=== PATIENT | female | born 1985 | race Caucasian/White ===

== ENCOUNTER 2020-07-13 02:04 | Inpatient (IN) ==
[2020-07-13 04:43] LABS: Hemoglobin 11.9 g/dL (12.0-16.0); Mean Corpuscular Hemoglobin 30.6 pg (25-34); Platelet Count 259 K/uL (130-400); RDW Coefficient of Variation 15.5 % (11.5-14.5); RDW Standard Deviation 49.6 fL (36.4-46.3); Red Blood Count 3.89 M/uL (4.2-5.4); White Blood Count 13.43 K/uL (4.8-10.8)
[2020-07-13] MEDS ORDERED: LACTATED RINGER'S 1,000 ML IV PRN ×2 (04:47→04:48)
[2020-07-13] MEDS ORDERED: OXYTOCIN 30 UNITS/500 ML BAG IV PRN ×3 (06:45→17:05)
--- NOTE | 2020-07-13 06:53 | History & Physical Report ---
Date of Service July 13, 2020 Assessment & Plan (1) : Admit to L&D, EFM/toco, IV, labs. Glucose checks Q2h in labor. OK for epidural. Will start pitocin at this time, as it has been 6h since ROM and ctx, while they have increased and cervix has changed since arrival (1 to 3 cm), not yet in a labor pattern. History of Present Illness Chief Complaint: rupture of membranes Primary Care Provider: Yoly Alvarez DO 35yo @ 39 12/08 presented to L&D after ROM clear fluid at home about midnight. Contractions are picking up. No vaginal bleeding. + movement. complicated by: RH NEGATIVE- Rhogam given 04/28/20 Panorama positive for XXY Klinefelter syndrome - MFM consult telemedicine, declined U/S & amnio GDM on Insulin *Wkly NSTs @32wks and Twice wkly @36wks *Serial growth US @28wks *Deliver by [facility] Allergies Allergy/AdvReac Type Severity Reaction Status Date / Time No Known Allergies Allergy Verified 07/07/20 14:05 Home Medications Home Medications Medication Instructions Recorded Confirmed Type prenat.vits,beto,[id number] 1 tab PO DAILY 01/15/20 07/13/20 History acetone (urine) test #50 ea 02/23/20 07/07/20 Rx blood sugar diagnostic #120 ea 02/23/20 07/07/20 Rx blood-glucose meter #1 ea 02/23/20 07/07/20 Rx lancets #102 ea 02/23/20 07/07/20 Rx insulin syringe-needle U-100 1 mL #50 ea 05/19/20 07/07/20 Rx 31 gauge x /16" ferrous sulfate 27 mg iron tablet 27 mg PO CQWK 05/23/20 07/13/20 History insulin NPH isoph U-100 human 100 120 units SQ QPM #40 ml 06/03/20 07/13/20 Rx unit/mL subcutaneous suspension fluticasone propionate 2 dose INHALATION BID 07/13/20 07/13/20 History metformin 2,000 mg PO QPM MDD 2000 mg 07/13/20 07/13/20 History Patient History Medical History Gestational diabetes mellitus (GDM) History of chicken pox Surgical History S/P LASIK surgery Family History Father Diabetes Mother Hypercholesteremia Social History Smoking Status: Never smoker Hx Alcohol Use: No Hx Substance Use: No Preferred Language: Turkish Load Planner Required: No Beliefs That Will Affect Care: None marital status: marital status details: Juan Woodard (34) [phone] Current Living Situation: Spouse Current Living Situation Comment: lives with spouse, dog current occupational status: employed 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 No s/s chorio or abruption. Skin: no rashes, warm and dry Psychiatric: A+Ox3, euthymic affect Results & Data ([facility]) Vital Signs (Past 12 Hours) Vital Signs Temp Resp 07/13/20 06:15 36.9 C 18 Monitoring External Monitor FHT Cat 1, toco Q 5-6 min Coding Level of Care Code None Diagnoses Z34.90
[2020-07-13] MEDS: LACTATED RINGER'S 1,000 ML IV PRN ×2 (07:46→08:38)
[2020-07-13] MEDS ORDERED: fentaNYL 2MCG/ML ROPIV 1.25MG/ML 100 ML BAG EPI ONE ×2 (07:54→15:31)
[2020-07-13] MEDS ORDERED: ePHEDrine sulfate 50 MG/ML AMP ONE (07:54)
[2020-07-13] MEDS ORDERED: fentaNYL citrate 100 MCG/2 ML VIAL ONE (07:54)
[2020-07-13] MEDS ORDERED: BUPIVACAINE 0.25% 30 ML VIAL ONE (07:54)
[2020-07-13] MEDS ORDERED: fentaNYL 2MCG/ML ROPIV 1.25MG/ML 100 ML BAG EPI PRN (08:42)
[2020-07-13] MEDS ORDERED: NALOXONE HCL 0.4 MG/1 ML VIAL/CARP IV PRN (08:42)
[2020-07-13] MEDS ORDERED: ONDANSETRON INJ 2 MG/ML 2 ML VIAL IV PRN (08:42)
[2020-07-13] MEDS ORDERED: DiphenhydrAMINE HCL 50 MG/ML VIAL IV PRN (08:42)
[2020-07-13] MEDS ORDERED: NALOXONE HCL 1 MG in SODIUM CHLORIDE 0.9% 1000ML 1,000 ML IV PRN (08:42)
[2020-07-13] MEDS ORDERED: ePHEDrine sulfate 50 MG/ML AMP IV PRN (08:42)
--- NOTE | 2020-07-13 08:48 | Anesthesiology Consultation ---
Date of Service July 13, 2020 Covid 19 negative on 07/07/20. Assessment & Plan Chart Review Chart Review: Patient NOT seen in Pre Admission Testing and Acceptable Risk for Labor Epidural Consults Requested none ASA ASA2 Proposed Anesthesia Anesthesia Type: Labor Epidural and CSE Risk / Benefits Reviewed With: PT / POA / Parent / Guardian, Accepts Plan and Informed Consent Obtained History Height/Weight Height: 5 ft 5 in Weight: 111.13 kg Allergies Allergy/AdvReac Type Severity Reaction Status Date / Time No Known Allergies Allergy Verified 07/07/20 14:05 Medications Home Medications Medication Instructions Recorded Confirmed Last Taken prenat.vits,beto,[id number] 1 tab PO DAILY 01/15/20 07/13/20 07/12/20 08:00 acetone (urine) test #50 ea 02/23/20 07/07/20 Unknown blood sugar diagnostic #120 ea 02/23/20 07/07/20 Unknown blood-glucose meter #1 ea 02/23/20 07/07/20 Unknown lancets #102 ea 02/23/20 07/07/20 Unknown insulin syringe-needle U-100 1 mL #50 ea 05/19/20 07/07/20 Unknown 31 gauge x 5/16" ferrous sulfate 27 mg iron tablet 27 mg PO CQWK 05/23/20 07/13/20 07/12/20 20:00 insulin NPH isoph U-100 human 100 120 units SQ QPM #40 ml 06/03/20 07/13/20 07/12/20 22:00 unit/mL subcutaneous suspension fluticasone propionate 2 dose INHALATION BID 07/13/20 07/13/20 07/12/20 22:00 metformin 2,000 mg PO QPM MDD 2000 mg 07/13/20 07/13/20 07/12/20 20:00 Active Medications Generic Name Dose Route Start Last Admin Trade Name Freq PRN Reason Stop Dose Admin Lactated Ringer's 1,000 mls @ 125 mls/hr 07/13/20 06:45 07/13/20 08:38 Lr IV 07/15/20 06:44 125 mls/hr .Q8H PRN Administration L&D Protocol Protocol Oxytocin 30 units in 500 mls @ 1 mls/hr 07/13/20 06:53 07/13/20 08:30 Pitocin IV 07/15/20 06:52 0.18 units/hr .Q24H PRN 3 mls/hr Labor Induction/Augmentation Titration Protocol 0.06 UNITS/HR NPO Date Last Intake of Fluids: 07/13/20 Time Last Intake of Fluids: 07:30 Date Last Intake of Solids: 07/13/20 Time Last Intake of Solids: 01:00 Past Medical History Medical History Gestational diabetes mellitus (GDM) History of chicken pox Exercise / Class Metabolic Activity II 4-5 Yardwork/Stairs/Walk up hill Past Family History Family History Father Diabetes Mother Hypercholesteremia Past Surgical History Surgical History S/P LASIK surgery Past Anesthesia History No Hx of Anesthesia Complications and No Family Hx of Anesthesia Complications History of PONV No Hx of PONV and No Hx of Motion Sickness Social History Smoking Status: Never smoker Hx Alcohol Use: No Hx Substance Use: No Review of Systems no chest pain or sob Physical Exam Vital Signs Last Vital Signs Temp 36.7 C 07/13/20 07:15 Pulse 101 H 07/13/20 08:43 Resp 20 07/13/20 07:15 BP 142/80 H 07/13/20 08:40 Pulse Ox 100 07/13/20 08:43 ENMT Mouth: no TMJ abnormality Thyromental Distance: > or= 3.5 Finger Breadths Mallampati Class: II Neck normal visual inspection Respiratory normal respiratory effort Auscultation: lungs clear to auscultation bilaterally Cardiovascular Rate/Rhythm: regular rate and regular rhythm Musculoskeletal Spine: normal cervical ROM Neurologic moves all extremities Psychiatric Orientation: alert and oriented x 3 Testing Laboratory Results 07/13/20 02:55 07/13/20 07/13/20 07:50 07:13 POC Glucose 100 H 109 H
--- NOTE | 2020-07-13 11:28 | Labor Progress Brief Note ---
Date of Service July 13, 2020 Subjective comfortable with epidural Assessment & Plan (1) Insulin controlled gestational diabetes mellitus (GDM) during , antepartum: Continue current management. fetus category one . anticipate . Admission and Anticipated Discharge Date Admission Date: July 13, 2020 Physical Exam Constitutional: WD/WN, vitals as above Psychiatric: A+Ox3, euthymic affect Genitourinary: cx--4/100/-2 toco--q 2-4min, runs of coupling /tripling, pit at 9 efm--130s with mod varibility, accels to 150s, no decels Results & Data ([facility]) Vital Signs (Past 12 Hours) Vital Signs Temp Pulse Resp BP Pulse Ox 07/13/20 11:25 77 140/72 07/13/20 11:23 74 96 07/13/20 11:18 76 98 07/13/20 11:13 79 99 07/13/20 11:10 82 128/69 07/13/20 11:08 81 98 07/13/20 11:03 96 H 97 07/13/20 11:01 20 07/13/20 10:58 83 97 07/13/20 10:55 93 H 106/58 L 07/13/20 10:53 82 96 07/13/20 10:48 97 H 99 07/13/20 10:46 20 07/13/20 10:43 85 96 07/13/20 10:41 97 H 108/59 L 07/13/20 10:38 86 97 07/13/20 10:33 84 97 07/13/20 10:31 20 07/13/20 10:28 81 97 07/13/20 10:26 80 112/56 L 07/13/20 10:23 83 95 07/13/20 10:18 78 97 07/13/20 10:16 20 07/13/20 10:13 75 96 07/13/20 10:11 77 102/59 L 07/13/20 10:08 91 H 99 07/13/20 10:03 85 97 07/13/20 10:01 20 07/13/20 09:58 86 98 07/13/20 09:56 83 136/61 07/13/20 09:53 84 98 07/13/20 09:48 75 97 07/13/20 09:46 20 07/13/20 09:43 73 97 07/13/20 09:39 68 151/80 H 07/13/20 09:38 75 96 07/13/20 09:33 72 96 07/13/20 09:31 20 07/13/20 09:28 84 97 07/13/20 09:24 74 143/78 H 07/13/20 09:23 77 98 07/13/20 09:19 76 140/68 07/13/20 09:18 87 136/82 98 07/13/20 09:15 37 C 20 07/13/20 09:13 82 131/70 98 07/13/20 09:10 75 159/71 H 07/13/20 09:08 85 99 07/13/20 09:07 83 159/75 H 07/13/20 09:04 79 115/81 07/13/20 09:03 80 97 07/13/20 08:58 91 H 99 07/13/20 08:53 89 98 07/13/20 08:48 87 100 07/13/20 08:43 101 H 100 07/13/20 08:40 80 142/80 H 07/13/20 08:38 79 100 07/13/20 07:48 78 135/65 07/13/20 07:15 36.7 C 20 07/13/20 07:07 87 137/78 07/13/20 06:15 36.9 C 18 Coding Level of Care Code None Diagnoses Insulin controlled gestational diabetes mellitus (GDM) during , antepartum O24.414
--- NOTE | 2020-07-13 14:15 | Labor Progress Brief Note ---
Date of Service July 13, 2020 Subjective comfortable, no pressure Assessment & Plan (1) Insulin controlled gestational diabetes mellitus (GDM) during , antepartum: Admission and Anticipated Discharge Date Admission Date: July 13, 2020 sugars controlled. Plan to labor down and then push when feels pressure or one hour. Physical Exam Constitutional: WD/WN, vitals as above Psychiatric: A+Ox3, euthymic affect Genitourinary: cx--c/c/0 toco--q2-3, pit at 13 efm--140s with mod variability, small accels , no decels Results & Data ([facility]) Vital Signs (Past 12 Hours) Vital Signs Temp Pulse Resp BP Pulse Ox 07/13/20 14:08 85 100 07/13/20 14:03 80 100 07/13/20 13:58 89 100 07/13/20 13:56 83 131/64 07/13/20 13:53 85 99 07/13/20 13:48 80 99 07/13/20 13:46 18 07/13/20 13:43 77 99 07/13/20 13:40 73 139/70 07/13/20 13:38 88 98 07/13/20 13:33 81 100 07/13/20 13:30 18 07/13/20 13:28 75 98 07/13/20 13:26 76 134/67 07/13/20 13:23 77 99 07/13/20 13:18 87 100 07/13/20 13:15 36.6 C 20 07/13/20 13:13 91 H 98 07/13/20 13:10 90 128/63 07/13/20 13:08 90 99 07/13/20 13:03 82 97 07/13/20 13:01 20 07/13/20 12:58 81 97 07/13/20 12:56 80 125/65 07/13/20 12:53 83 97 07/13/20 12:48 77 98 07/13/20 12:46 20 07/13/20 12:43 83 97 07/13/20 12:40 80 123/71 07/13/20 12:38 82 99 07/13/20 12:33 84 99 07/13/20 12:31 20 07/13/20 12:28 90 99 07/13/20 12:25 78 126/64 07/13/20 12:23 78 96 07/13/20 12:18 74 97 07/13/20 12:16 20 07/13/20 12:13 85 99 07/13/20 12:10 76 125/73 07/13/20 12:08 82 98 07/13/20 12:03 89 98 07/13/20 12:01 20 07/13/20 11:58 91 H 99 07/13/20 11:54 83 130/69 07/13/20 11:53 79 100 07/13/20 11:48 74 97 07/13/20 11:46 20 07/13/20 11:43 76 98 07/13/20 11:39 70 138/72 07/13/20 11:38 77 99 07/13/20 11:33 82 98 07/13/20 11:31 36.6 C 20 07/13/20 11:28 91 H 99 07/13/20 11:25 77 140/72 07/13/20 11:23 74 96 07/13/20 11:18 76 98 07/13/20 11:13 79 99 07/13/20 11:10 82 128/69 07/13/20 11:08 81 98 07/13/20 11:03 96 H 97 07/13/20 11:01 20 07/13/20 10:58 83 97 07/13/20 10:55 93 H 106/58 L 07/13/20 10:53 82 96 07/13/20 10:48 97 H 99 07/13/20 10:46 20 07/13/20 10:43 85 96 07/13/20 10:41 97 H 108/59 L 07/13/20 10:38 86 97 07/13/20 10:33 84 97 07/13/20 10:31 20 07/13/20 10:28 81 97 07/13/20 10:26 80 112/56 L 07/13/20 10:23 83 95 07/13/20 10:18 78 97 07/13/20 10:16 20 07/13/20 10:13 75 96 07/13/20 10:11 77 102/59 L 07/13/20 10:08 91 H 99 07/13/20 10:03 85 97 07/13/20 10:01 20 07/13/20 09:58 86 98 07/13/20 09:56 83 136/61 07/13/20 09:53 84 98 07/13/20 09:48 75 97 07/13/20 09:46 20 07/13/20 09:43 73 97 07/13/20 09:39 68 151/80 H 07/13/20 09:38 75 96 07/13/20 09:33 72 96 07/13/20 09:31 20 07/13/20 09:28 84 97 07/13/20 09:24 74 143/78 H 07/13/20 09:23 77 98 07/13/20 09:19 76 140/68 07/13/20 09:18 87 136/82 98 07/13/20 09:15 37 C 20 07/13/20 09:13 82 131/70 98 07/13/20 09:10 75 159/71 H 07/13/20 09:08 85 99 07/13/20 09:07 83 159/75 H 07/13/20 09:04 79 115/81 07/13/20 09:03 80 97 07/13/20 08:58 91 H 99 07/13/20 08:53 89 98 07/13/20 08:48 87 100 07/13/20 08:43 101 H 100 07/13/20 08:40 80 142/80 H 07/13/20 08:38 79 100 07/13/20 07:48 78 135/65 07/13/20 07:15 36.7 C 20 07/13/20 07:07 87 137/78 07/13/20 06:15 36.9 C 18 Coding Level of Care Code None Diagnoses Insulin controlled gestational diabetes mellitus (GDM) during , antepartum O24.414
--- NOTE | 2020-07-13 16:29 | Delivery Summary ---
Vaginal Delivery Summary Date of Service July 13, 2020 Vaginal Delivery Summary Pre-operative Diagnosis: at term prom Post-operative Diagnosis: same Procedure: epidural pitocin augmentation right labial laceration wtih repair EBL: 400cc Anesthesia: epidural Procedure: The patient pushed for less than an hour to deliver a viable male infant in KENNEDY position. A loose nuchal cord x 2 reduced easily and the rest of the infant was then delivered without difficulty. The baby was vigorous. The nose and mouth were bulb suctioned and the infant was placed in the maternal abdomen for drying and attention. Cord was clamped and cut at 30 secs of life. Cord blood and segment obtained. Placenta delivered via manual extraction and was intact. Uterus swept and no pocs noted Cervix/sulci/rectum/perineum were intact. A small right labial laceration was repaired in the normal standard fashion. Hemostasis obtained with dilute pitocin and fundal massage. Apgars were 7/9. Mother and baby doing well at the end of the delivery. [facility] Vaginal Delivery Charge Vaginal Delivery Codes: 97759 global code for the antepartum, delivery, and post-
[2020-07-13] MEDS ORDERED: ACETAMINOPHEN 325 MG TAB PO PRN (16:33)
[2020-07-13] MEDS ORDERED: OXYCODONE/ACETAMINOPHEN 5mg/325mg TAB PO PRN (16:33)
--- NOTE | 2020-07-13 16:46 | Anesthesia Procedure Note ---
Date of Service July 13, 2020 Anesthesia Post Epidural Note Vital Signs Vital Signs: Temp Pulse Resp BP Pulse Ox 36.6 C 101 H 20 133/58 L 97 07/13/20 13:15 07/13/20 16:37 07/13/20 15:31 07/13/20 16:37 07/13/20 16:08 Notes Mental Status: alert / awake / arousable and participated in evaluation Nausea / Vomiting: adequately controlled Pain: adequately controlled Airway Patency, RR, SpO2: stable & adequate BP & HR: stable & adequate Hydration State: stable & adequate Neuraxial Anesthesia: was administered and sensory block is resolving Anesthetic Complications: no major complications apparent and Pt Satisfied with anesthetic care Epidural: Removed without complications and With tip intact
[2020-07-13] MEDS ORDERED: HYDROCORTISONE ACETATE 25 MG SUPP PR PRN (17:05)
[2020-07-13] MEDS ORDERED: DIPHTHERIA/TETANUS/PERTUSSIS 0.5 ML SYR/VIAL IM ONE (17:05)
[2020-07-13] MEDS ORDERED: SUPERCREAM 0.870% 15 GM JAR EXT PRN (17:05)
[2020-07-13] MEDS ORDERED: BENZOCAINE 20% AER SPR 82.5 GM CAN EXT PRN (17:05)
[2020-07-13] MEDS: DOCUSATE SODIUM 100 MG CAP PO SCH (20:41)
[2020-07-13] MEDS: IBUPROFEN 600 MG TAB PO PRN (22:57)
[2020-07-14] MEDS: IBUPROFEN 600 MG TAB PO PRN ×3 (05:01→20:50)
[2020-07-14 05:42] LABS: Hematocrit (blood only) 33.7 % (37-47); Hemoglobin 11.2 g/dL (12.0-16.0)
--- NOTE | 2020-07-14 06:25 | Obstetrical Progress Note ---
Date of Service <Mary Swain DO - Last Filed: 07/14/20 07:37> July 14, 2020 Assessment & Plan <Mary Swain DO - Last Filed: 07/14/20 07:37> (1) Normal course: - Hx: GBS neg, rubella immune, Rh - -- Awaiting baby's bloodwork and will give rhogam 72h post delivery if baby is d-pos - Feels well today. Eating well, voiding well. - Pain well controlled with ibuprofen 600mg Q4H PRN - Routine care -- OOB, ambulation, diet progression as tolerated - After discharge will have 6 week follow-up with Dr. Villela. (2) Right calf pain: - Pt with right calf pain since delivery; described as tightness sensation. - Will get RLE US to r/o DVT. Subjective <Mary Swain DO - Last Filed: 07/14/20 07:37> Patricia Jimenez is a 35 y/o female who is PPD #1 following with epidural at 39 6/7 weeks. She reports feeling well overall this morning. Minimal abdominal and perineal cramping & 2/10 pain well managed on analgesics. Voiding without difficulty. Tolerating meals overnight. Pt has not yet tried ambulating farther than walking to the bathroom. + passing gas and + bowel movement. Has persistent lochia with some improvement this morning. Currently breast feeding but concerned that baby isn't well. Pt also complains of right calf tightness. She describes the tightness as "feeling like [she] just worked out." There is no associated swelling reported. Review of Systems Denies fever or chills. Denies shortness of breath or cough. Denies chest pain. Denies breast pain. Denies dysuria. + calf pain. Denies leg swelling. Denies headache or changes in vision. Physical Exam <Mary Swain DO - Last Filed: 07/14/20 07:37> General: Alert, oriented. No acute distress. Cardiac: Regular rate and rhythm. No murmurs. Respiratory: Clear to auscultation bilaterally a/p, no wheezes/rales/rhonchi. No increased work of breathing. Symmetrical chest rise. No respiratory distress. Abdomen: Soft, nontender, nondistended. Bowel sounds present. Uterus: Uterine fundus firm, palpable 1 cm below umbilicus. Lower Extremities: Right lower extremity tenderness to calf squeeze. Tightness sensation reported on right calf with Kevin's. Kevin's negative on left side. No lower extremity edema or swelling. Results & Data ([facility]) <Mary Swain DO - Last Filed: 07/14/20 07:37> Vital Signs (Past 12 Hours) Vital Signs Temp Pulse Pulse Resp BP BP Pulse Ox 07/14/20 04:50 36.8 C 85 16 131/82 98 07/13/20 23:05 37.2 C 94 H 16 132/81 98 07/13/20 19:35 36.8 C 96 H 16 131/80 97 07/13/20 18:22 37.1 C 110 H 20 136/80 Laboratory Results H/H 11.2/33/7 this morning <Charo Villela MD, FACOG - Last Filed: 07/14/20 07:44> Co-Signing Physician Notes Resident Physician Supervision Note: I interviewed and examined the patient. Discussed with Dr. Swain and agree with findings and plan as documented in the note. Any exceptions or clarifications are listed here: Doing well. Routine pp day one activities. Given unilateral right calf pain and tenderness, plan lower extremity DVT. Documented By: Charo Villela MD, FACOG
[2020-07-14] MEDS: DOCUSATE SODIUM 100 MG CAP PO SCH ×2 (08:03→20:50)
[2020-07-14] MEDS: PRENATAL VITAMIN 1 TAB PO SCH (08:03)
--- NOTE | 2020-07-14 09:09 | Ultrasound Report ---
US venous doppler LE RT HISTORY: 35 years-old Female right calf pain, post day #1 acute pain and swelling of the righ t lower extremity COMPARISON: None TECHNIQUE: Multiple real-time sonographic images of the right lower extremity deep venous structures were obtained assessing grayscale appearance, color and spectral flow FINDINGS: Normal flow, compressibility, phasicity and augmentation of the right lower extremity deep venous str uctures. IMPRESSION: No sonographic evidence of deep venous thrombosis. ACT 112: Negative or not required by law. The above report was generated using voice recognition software. It may contain grammatical, syntax o r spelling errors. Electronically signed by: Diallo Heard M.D. 07/14/2020 9:08 AM
[2020-07-14] MEDS ORDERED: bisacodyL 5 MG TABEC PO SCH (20:00)
[2020-07-15] MEDS: IBUPROFEN 600 MG TAB PO PRN (05:53)
--- NOTE | 2020-07-15 06:45 | Obstetrical Progress Note ---
Date of Service <Mary Swain DO - Last Filed: 07/15/20 06:58> July 15, 2020 Assessment & Plan <Mary Swain DO - Last Filed: 07/15/20 06:58> (1) Normal course: - Feels well today. Eating well, voiding well, ambulating well. - Pain well controlled with ibuprofen 600mg Q4H PRN - Routine care -- OOB, ambulation, diet progression as tolerated - After discharge will have 6 week follow-up with Dr. Villela - Plan for d/c home today. Subjective <Mary Swain DO - Last Filed: 07/15/20 06:58> Patricia Jimenez is a 35 y/o female who is PPD #2 following with epidural at 39 6/7 weeks. She reports feeling well overall this morning. Minimal abdominal cramping and 2/10 pain well managed on analgesics. Voiding without di fficulty. Tolerating meals overnight without difficulty, nausea, or vomiting. Patient has been able to ambulate some. + passing gas and + bowel movement x1 post delivery. Has persistent lochia with improvement this morning. Currently . Prior c/o of calf pain has resolved; RLE US yesterday r/o DVT. Review of Systems Denies fever or chills. Denies shortness of breath or cough. Denies chest pain. Denies breast pain. Denies dysuria. Denies leg pain or leg swelling. Denies headache or changes in vision. Physical Exam <Mary Swain DO - Last Filed: 07/15/20 06:58> General: Alert, oriented. No acute distress. Cardiac: Regular rate and rhythm. No murmurs. Respiratory: Clear to auscultation bilaterally a/p, no wheezes/rales/rhonchi. No increased work of breathing. Symmetrical chest rise. No respiratory distress. Abdomen: Soft, nontender, nondistended. Bowel sounds present. Uterus: Uterine fundus firm, palpable 1 cm below umbilicus. Lower Extremities: No lower extremity edema or swelling. No deep calf pain. Kevin's negative bilaterally. Results & Data ([facility]) <Mary Swain DO - Last Filed: 07/15/20 06:58> Vital Signs (Past 12 Hours) Vital Signs Temp Pulse Resp BP Pulse Ox 07/14/20 23:20 36.9 C 78 14 126/82 98 07/14/20 20:00 36.6 C 91 H 16 143/77 H 97 <Tl Valdes Jr, MD, FACOG - Last Filed: 07/15/20 07:51> Co-Signing Physician Notes Resident Physician Supervision Note: I was present with Dr. Swain during the history and exam. I discussed the case with the resident and agree with the findings and plan as documented in the note. Any exceptions or clarifications are listed here: U/S yesterday r/o DVT. Pt desires d/c, instructions given, f/u in 6 weels Documented By: Tl Valdes Jr, MD, FACOG
[2020-07-15] MEDS: DOCUSATE SODIUM 100 MG CAP PO SCH (08:26)
[2020-07-15] MEDS: PRENATAL VITAMIN 1 TAB PO SCH (08:26)
[2020-07-15] MEDS ORDERED: bisacodyL 10 MG SUPP PR PRN (09:00)
== END 2020-07-15 15:45 | disposition home or self-care (01) | DRG 807 ==
LOC: OPB 02:04 → 4S1 02:05 → 4S2 19:01

== ENCOUNTER 2022-10-19 05:25 | Inpatient (IN) ==
[2022-10-19] MEDS ORDERED: OXYTOCIN 30 UNITS/500 ML BAG IV PRN ×2 (06:12→15:28)
[2022-10-19] MEDS ORDERED: LIDOCAINE 1% LOCAL 20 ML VIAL INFIL PRN (06:12)
--- NOTE | 2022-10-19 06:15 | History & Physical Report ---
Date of Service October 19, 2022 Assessment & Plan (1) Insulin controlled gestational diabetes mellitus (GDM) during : (2) with 39 completed weeks gestation: (3) Normal labor: Plan admit. expectant management. fetus category one. augment if needed. gbs negative. anticipate . Admission and Anticipated Discharge Date Admission Date: October 19, 2022 History of Present Illness Chief Complaint: srom and contractions Primary Care Provider: Yoly Alvarez DO Patient is a 37yowf who presents to labor and delivery complaining of rom and contractions. +fm. Was scheduled for induction today. and Delivery Plans COVID POSITIVE 05/09/22 (SX STARTED 05/06/22) GDM on insulin (05/03/22) *Wkly NSTs @32wks and Twice wkly @36wks *Serial growth US @28wks *Deliver by [facility] AMA Weekly NST's @ 36 weeks Need for Rhogam d/t RH neg mother Rhogam given 08/08/22 SB Flu shot given 08/22/22 SB IOL 10/19 OB Labs: Blood Type A Negative 03/21/22 Antibody Screen NEGATIVE 08/08/22 Hemoglobin 10.4 g/dl (12.0-16.0) L 08/08/22 Hematocrit 31.4 % (34.1-44.9) L 08/08/22 Mean Corpuscular Volume 91.6 fL (80-100) 03/21/22 Platelet Count 372 K/uL (130-400) 03/21/22 Rubella IgG Antibody Immune (Immune) 03/21/22 Rapid Plasma Reagin Nonreactive (Nonreactive) 03/21/22 Hepatitis B Surface Antigen Neg (Neg) 01/26/20 Hepatitis B Surface Antigen. NON-REACTIVE (NON-REACTIVE) 03/21/22 Hepatitis C Antibody (EIA) NON-REACTIVE (NON-REACTIVE) 03/21/22 HIV (1&2) Ab and P24 Ag, 4th Gener Neg (Neg) 01/26/20 HIV (1&2) Ag and Ab Confirmation NON-REACTIVE (NON-REACTIVE) 03/21/22 Glucose 1 Hour 50 gm Load 142 mg/dl (70-130) H 02/12/20 OB Optional Labs: Chlamydia trachomatis RNA NOT DETECTED (NOT DETECTED) 03/21/22 Neisseria gonorrhoeae RNA NOT DETECTED (NOT DETECTED) 03/21/22 Labs Reviewed: cf/sma neg cfdna-low risk--mln Declines msafp--mln gbs negative Allergies Allergy/AdvReac Type Severity Reaction Status Date / Time No Known Allergies Allergy Verified 10/18/22 08:42 Home Medications Medication Instructions Recorded Confirmed Type prenat.vits,beto,mpq-ungm-[id number] 1 tab PO DAILY 01/15/20 10/18/22 History fluticasone propionate 2 dose inhalation BID 07/13/20 10/18/22 History clindamycin phosphate [Clindamycin] topical 03/12/22 10/18/22 History nystatin-triamcinolone topical 03/12/22 10/18/22 History acetone (urine) test (Ketone Urine #50 ea 04/03/22 10/18/22 Rx Test strips) blood sugar diagnostic (Accu-Chek #150 ea 04/03/22 10/18/22 Rx Guide test strips) lancets (Accu-Chek Fastclix Lancet #102 ea 04/03/22 10/18/22 Rx Drum) insulin NPH isoph U-100 human 100 50 unit (0.5 mL) subcut HS #20 mL 07/05/22 10/18/22 Rx unit/mL subcutaneous suspension (Novolin N NPH U-100 Insulin isophane) insulin syringe-needle U-100 1 mL #50 ea 07/05/22 10/18/22 Rx 31 gauge x 5/16" (BD Insulin Syringe Ultra-Fine) ferrous sulfate [Iron (ferrous PO 10/01/22 10/18/22 History sulfate)] Patient History Medical History Abnormal biochemical finding on screening of mother (+)cfDNA for XXY Gestational diabetes mellitus (GDM) History of chicken pox Surgical History S/P LASIK surgery S/P wisdom tooth extraction Family History Father Diabetes Mother Hypercholesteremia Son Klinefelters syndrome Denies family history of Ovarian cancer Breast cancer Colorectal cancer Social History Smoking Status: Never smoker Hx Alcohol Use: No Hx Substance Use: No Preferred Language: [employer]ali [employer] Required: No Beliefs That Will Affect Care: None marital status: marital status details: Juan Woodard [phone]) [phone] Current Living Situation: Spouse and Family Current Living Situation Comment: lives with spouse, son dog current occupational status: employed 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 Date GA wks Lbr Lgth wt Sex Type del Anes Place Del Prov ? Comment 07/13/20 39 7lbs 5.5 oz M E pidural [facility] [place] No xxy, Klinefelter syndrome [employer] History noncontributory Physical Exam Constitutional: WD/WN, vitals as above Gastrointestinal (Abdomen): soft, gravid, nt Psychiatric: A+Ox3, euthymic affect Genitourinary: cx--/-2 toco--q3-5 efm--150s with mod variability, accels to 180s, no decels Coding Level of Care Code None Diagnoses Insulin controlled gestational diabetes mellitus (GDM) during O24.414 with 39 completed weeks gestation Z3A.39 Normal labor O80; Z37.9
[2022-10-19 06:58] LABS: Hemoglobin 11.7 g/dl (12.0-16.0); Mean Corpuscular Hemoglobin 30.2 pg (25.0-34.0); Mean Corpuscular Hgb Conc 34.4 g/dL (32.0-36.0); Mean Corpuscular Volume 87.9 fL (80.0-100.0); Mean Platelet Volume 10.1 fL (9.4-12.3); Nucleated RBC # (auto) 0.02 K/uL (0-0); Nucleated RBC % (auto) 0.1 %; Platelet Count 283 K/uL (130-400); RDW Coefficient of Variation 15.9 % (11.5-14.5); RDW Standard Deviation 50.8 fL (36.4-46.3); Red Blood Count 3.87 M/uL (3.93-5.22)
[2022-10-19] MEDS: LACTATED RINGER'S 1,000 ML IV PRN ×2 (07:29→08:47)
[2022-10-19] MEDS ORDERED: SODIUM CHLORIDE 0.9% INJ 10 ML VIAL ONE (07:36)
[2022-10-19] MEDS ORDERED: LIDOCAINE 2%/EPINEPHRINE 1:200,000 20 ML SDV ONE (07:36)
[2022-10-19] MEDS ORDERED: ePHEDrine sulfate 50 MG/ML AMP ONE (07:36)
[2022-10-19] MEDS ORDERED: BUPIVACAINE 0.25% 30 ML VIAL ONE (07:36)
[2022-10-19] MEDS ORDERED: fentaNYL citrate 100 MCG/2 ML VIAL ONE (07:36)
[2022-10-19] MEDS ORDERED: fentaNYL 2MCG/ML ROPIVACAINE 1.25MG/ML 100 ML BAG EPI ONE (07:37)
--- NOTE | 2022-10-19 08:03 | Anesthesiology Consultation ---
Date of Service October 19, 2022 Assessment & Plan (1) Encounter for pre-operative examination: History Height/Weight Height: 5 ft 5 in Weight: 111.584 kg Allergies Allergy/AdvReac Type Severity Reaction Status Date / Time No Known Allergies Allergy Verified 10/18/22 08:42 Medications Home Medications Medication Instructions Recorded Confirmed Last Taken prenat.vits,beto,hyb-rods-xexla 1 tab PO DAILY 01/15/20 10/18/22 07/12/20 08:00 fluticasone propionate 2 dose inhalation BID 07/13/20 10/18/22 07/12/20 22:00 clindamycin phosphate [Clindamycin] topical 03/12/22 10/18/22 Unknown nystatin-triamcinolone topical 03/12/22 10/18/22 Unknown acetone (urine) test (Ketone Urine #50 ea 04/03/22 10/18/22 Unknown Test strips) blood sugar diagnostic (Accu-Chek #150 ea 04/03/22 10/18/22 Unknown Guide test strips) lancets (Accu-Chek Fastclix Lancet #102 ea 04/03/22 10/18/22 Unknown Drum) insulin NPH isoph U-100 human 100 50 unit (0.5 mL) subcut HS #20 mL 07/05/22 10/18/22 Unknown unit/mL subcutaneous suspension (Novolin N NPH U-100 Insulin isophane) insulin syringe-needle U-100 1 mL #50 ea 07/05/22 10/18/22 Unknown 31 gauge x 5/16" (BD Insulin Syringe Ultra-Fine) ferrous sulfate [Iron (ferrous PO 10/01/22 10/18/22 Unknown sulfate)] Active Medications Generic Name Dose Route Start Last Admin Trade Name Freq PRN Reason Stop Dose Admin Lactated Ringer's 1,000 mls @ 125 mls/hr 10/19/22 06:12 10/19/22 07:29 Lr IV 10/21/22 06:11 999 mls/hr .Q8H PRN Administration L&D Protocol Protocol Past Medical History Medical History Abnormal biochemical finding on screening of mother (+)cfDNA for XXY Gestational diabetes mellitus (GDM) History of chicken pox Past Family History Family History Father Diabetes Mother Hypercholesteremia Son Klinefelters syndrome Denies family history of Ovarian cancer Breast cancer Colorectal cancer Past Surgical History Surgical History S/P LASIK surgery S/P wisdom tooth extraction Social History Smoking Status: Never smoker Do You Dip or Chew Tobacco: No Hx Alcohol Use: No Hx Substance Use: No Physical Exam Vital Signs Last Vital Signs Temp 36.6 C 10/19/22 07:25 Pulse 79 10/19/22 07:14 Resp 17 10/19/22 07:25 BP 130/72 10/19/22 07:14 Testing Laboratory Results 10/19/22 06:36 10/19/22 07:13 POC Glucose 127 H
[2022-10-19] MEDS ORDERED: NALBUPHINE HCL INJ 10 MG/ML AMP IV PRN (08:45)
[2022-10-19] MEDS ORDERED: ePHEDrine sulfate 50 MG/ML AMP IV PRN (08:45)
[2022-10-19] MEDS ORDERED: diphenhydrAMINE 50 MG/ML VIAL IV PRN (08:45)
[2022-10-19] MEDS ORDERED: fentaNYL 2MCG/ML ROPIVACAINE 1.25MG/ML 100 ML BAG EPI PRN (08:45)
[2022-10-19] MEDS ORDERED: NALOXONE HCL 0.4 MG/1 ML VIAL/CARP IV PRN (08:45)
[2022-10-19] MEDS ORDERED: NALOXONE HCL 1 MG in SODIUM CHLORIDE 0.9% 1000ML 1,000 ML IV PRN (08:45)
[2022-10-19] MEDS ORDERED: HYDROCORTISONE ACETATE 25 MG SUPP PR PRN (15:28)
[2022-10-19] MEDS ORDERED: ACETAMINOPHEN 325 MG TAB PO PRN (15:28)
[2022-10-19] MEDS ORDERED: DIPHTHERIA/TETANUS/PERTUSSIS 0.5 ML SYR/VIAL IM ONE (15:28)
[2022-10-19] MEDS ORDERED: oxyCODONE/ACETAMINOPHEN 5mg/325mg TAB PO PRN (15:28)
[2022-10-19] MEDS ORDERED: BENZOCAINE 20% AER SPR 82.5 GM CAN EXT PRN (15:28)
[2022-10-19] MEDS ORDERED: bisacodyL 10 MG SUPP PR PRN (15:28)
--- NOTE | 2022-10-19 15:29 | Anesthesia Procedure Note ---
Date of Service October 19, 2022 Anesthesia Post Epidural Note Vital Signs Vital Signs: Temp Pulse Resp BP Pulse Ox 36.5 C 89 18 127/60 100 10/19/22 12:56 10/19/22 15:26 10/19/22 14:15 10/19/22 15:18 10/19/22 15:26 Notes Mental Status: alert / awake / arousable and participated in evaluation Nausea / Vomiting: adequately controlled Pain: adequately controlled Airway Patency, RR, SpO2: stable & adequate BP & HR: stable & adequate Hydration State: stable & adequate Neuraxial Anesthesia: was administered and sensory block is resolving Anesthetic Complications: no major complications apparent and Pt Satisfied with anesthetic care Epidural: Removed without complications and With tip intact
--- NOTE | 2022-10-19 16:34 | Delivery Summary ---
Vaginal Delivery Summary Date of Service October 19, 2022 Vaginal Delivery Summary Patient is a 37-year-old 2 para 1-0-0-1 female EDC of 10/26/2022 who presented with ruptured membranes and then spontaneous contractions. She was to be induced today because of gestational diabetes on insulin. She received effective epidural analgesia and progressed to full dilation. She pushed effectively over intact perineum for delivery of a viable female . After the head was delivered the rest of the delivered easily. The infant was placed on the mother's abdomen for further attention and drying. After 1 minute, the cord was clamped and cut. The placenta was then expressed intact with a three-vessel cord after cord blood was obtained. bleeding was controlled with dilute Pitocin and fundal massage. Estimated blood loss was 250 cc. Mother and were doing well after delivery. [facility] [place] Vaginal Delivery Charge Delivery Type Details: [facility]
[2022-10-19] MEDS: IBUPROFEN 600 MG TAB PO PRN (19:47)
[2022-10-19] MEDS: DOCUSATE SODIUM 100 MG CAP PO SCH (20:47)
[2022-10-20] MEDS: IBUPROFEN 600 MG TAB PO PRN ×3 (01:37→10:40)
[2022-10-20 06:36] LABS: Hematocrit (blood only) 31.9 % (34.1-44.9); Hemoglobin 10.6 g/dl (12.0-16.0); Mean Corpuscular Hemoglobin 29.9 pg (25.0-34.0); Mean Corpuscular Hgb Conc 33.2 g/dL (32.0-36.0); Mean Corpuscular Volume 90.1 fL (80.0-100.0); Mean Platelet Volume 9.7 fL (9.4-12.3); Platelet Count 237 K/uL (130-400); RDW Coefficient of Variation 15.9 % (11.5-14.5); RDW Standard Deviation 53.1 fL (36.4-46.3); Red Blood Count 3.54 M/uL (3.93-5.22); White Blood Count 13.52 K/ul (4.8-10.8)
--- NOTE | 2022-10-20 07:46 | Obstetrical Progress Note ---
Date of Service October 20, 2022 Assessment & Plan (1) state: 37 yo PP1 from , doing well -Meeting all pp milestones -A-/rubella immune/ -f/u 6 weeks for appt. Pt desires d/c home today, ok to do so after 24 hrs Subjective Ambulation: ambulating normally Voiding: no voiding problems Passing Gas:: Yes Diet Tolerance:: regular diet Lochia:: Small Feeding Type:: breast feeding Pain well managed with medication Review of Systems Denies fevers, chills, n/v, SANCHEZ, CP, SOB Physical Exam Constitutional WD/WN, vitals as above no acute distress Respiratory normal respiratory effort, lungs clear to auscultation Cardiovascular RRR, no murmur, no edema Gastrointestinal (Abdomen) Percussion/Palpation: abdomen soft; abdomen nontender fundus firm at umbilicus and NT Musculoskeletal BLE symmetric, nonerythematous, nontender Results & Data ([facility]) Vital Signs (Past 12 Hours) Vital Signs Temp Pulse Resp BP Pulse Ox O2 Del Method 10/20/22 03:30 97.5 F L 77 18 142/89 H 99 Room Air 10/19/22 22:57 98.1 F 84 18 132/84 98 Room Air
[2022-10-20] MEDS ORDERED: PRENATAL VITAMIN 1 TAB PO SCH (08:00)
[2022-10-20] MEDS: DOCUSATE SODIUM 100 MG CAP PO SCH (08:13)
[2022-10-20] MEDS ORDERED: bisacodyL 5 MG TABEC PO SCH (20:00)
== END 2022-10-20 18:00 | disposition home or self-care (01) | DRG 806 ==
LOC: 4S1 05:25 → 4E2 19:00
DX: O42.02 Full-term premature rupture of membranes, onset of labor within 24 hours of rupture; O36.0130 Maternal care for anti-D [Rh] antibodies, third trimester, not applicable or unspecified; Z3A.39 39 weeks gestation of pregnancy; Z83.3 Family history of diabetes mellitus; O24.414 Gestational diabetes mellitus in pregnancy, insulin controlled; Z29.13 Encounter for prophylactic Rho(D) immune globulin; Z67.91 Unspecified blood type, Rh negative; Z86.16 Personal history of COVID-19; Z37.0 Single live birth; Z79.4 Long term (current) use of insulin